=== PATIENT | male | born 1980 | race Caucasian/White ===

== ENCOUNTER 2025-08-13 07:58 | Outpatient (REF) | payer OTHER, SELFPAY ==
[2025-08-13 14:43] LABS: HCT 42.8 % (40.0-50.0); HGB 14.3 g/dL (13.5-17.5); MCH 28.9 pg (27.0-33.0); MCHC 33.4 % (32.0-36.0); MCV 87 fL (80-95); MPV 9.2 fL (8.0-11.0); Platelet Count 219 10^3/uL (130-400); RBC 4.95 10^6/uL (4.36-5.78); RDW 11.4 % (11.8-14.1); RDW-SD 36.0 fL; WBC 4.14 10^3/uL (4.4-10.8)
[2025-08-13 15:06] LABS: Hemoglobin A1C 5.2 % (<5.7)
[2025-08-13 15:24] LABS: ALT 19 U/L (10-49); AST 19 U/L (<34); Albumin 4.5 g/dL (3.2-5.0); Alkaline Phosphatase 52 U/L (46-116); Anion Gap 6.3 mmol/L (3-11); BUN 12 mg/dL (9-23); Bilirubin, Total 0.7 mg/dL (0.2-1.2); CO2 28.7 mmol/L (20.0-31.0); Calcium 9.8 mg/dL (8.3-10.6); Chloride 104 mmol/L (98-107); Cholesterol 154 mg/dL (<200); Glucose 104 mg/dL (74-106); HDL Cholesterol 51 mg/dL (>40); Potassium 4.1 mmol/L (3.5-5.1); Sodium 139 mmol/L (136-145); Total Protein 7.1 g/dL (5.7-8.2)
[2025-08-14 00:39] LABS: PSA, Screening 0.7 ng/mL (<=2.5)
== END 2025-08-13 07:59 | disposition home or self-care (01) ==
LOC: NCHCN 07:58
PROVIDERS: PCP Physician Assistant; Visit Provider Physician Assistant
DX: Z12.5 Encounter for screening for malignant neoplasm of prostate (principal); Z13.1 Encounter for screening for diabetes mellitus; Z00.00 Encounter for general adult medical examination without abnormal findings
CPT/HCPCS: 80053; 80061; 84153; 85027; 83036